=== PATIENT | female | born 2000 | race Hispanic/Latino ===

== ENCOUNTER 2024-04-19 22:06 | Emergency (ER) | payer OTHER ==
[~2024-04-19] VITALS: Ht 162.6 cm; Wt 63.6 kg
[2024-04-20 00:35] LABS: URINE PREG TEST NEGATIVE (NEGATIVE)
[2024-04-20] MEDS: methocarbamoL 500 MG TAB PO ONE (01:39)
[2024-04-20] MEDS: KETOROLAC 30 MG/ML 1ML VIAL IM ONE (01:41)
[2024-04-20] MEDS ORDERED: NAPR-885 PO (02:06)
[2024-04-20] MEDS ORDERED: METH-1165 PO (02:06)
[2024-04-20 02:13] VITALS: BP 149/71; TEMP 97.1; O2SAT 99
== END 2024-04-20 02:18 | disposition home or self-care (01) ==
LOC: M ED 22:06
DX: S73.102A Unspecified sprain of left hip, initial encounter (principal); S73.101A Unspecified sprain of right hip, initial encounter; Z88.0 Allergy status to penicillin; Z88.1 Allergy status to other antibiotic agents; Y92.89 Other specified places as the place of occurrence of the external cause; Y93.89 Activity, other specified; Y99.1 Military activity
CPT/HCPCS: 73521; 81001; 84703; 96372; 99284; J1885

== ENCOUNTER → 2024-07-07 | Outpatient (CLI) | payer OTHER ==
[~2024-07-07] MED LIST: ISOVUE-300 61% 100ML VIAL As Ordered ONE; LIDOCAINE 1% MDV 20ML VIAL As Ordered ONE; METH-1165 PO; NAPR-885 PO; PROHANCE 279.3MG/ML 5ML VIAL As Ordered ONE
== END ==
LOC: M RAD 06:30
PROVIDERS: ATTEND Physician Assistant
DX: M25.552 Pain in left hip (principal); S73.004A Unspecified dislocation of right hip, initial encounter; S73.005A Unspecified dislocation of left hip, initial encounter; X58.XXXA Exposure to other specified factors, initial encounter; Y92.9 Unspecified place or not applicable
CPT/HCPCS: 27093; 73723; 77002; A9576; Q9967